=== PATIENT | female | born 1950 | race Caucasian/White ===

== ENCOUNTER 2016-05-12 11:11 | Inpatient (IN) | payer MEDICARE ==
[~2016-05-12] VITALS: Ht 165.1 cm; Wt 68.0 kg
[2016-05-12] MEDS ORDERED: IV NS 0.9% 500 ML BAG IV ONE (11:30)
[2016-05-12 11:53] LABS: BASOPHILS # (AUTO) 0.1 /CMM (0.0-0.2); BASOPHILS % (AUTO) 0.5 % (0.0-2.0); EOSINOPHILS # (AUTO) 0.1 /CMM (0.0-0.7); EOSINOPHILS % (AUTO) 0.6 % (0.0-6.0); HEMATOCRIT 36 % (33-45); HEMOGLOBIN 12.2 g/dL (11.5-14.8); LYMPHOCYTES # (AUTO) 1.1 /CMM (0.8-4.8); LYMPHOCYTES % (AUTO) 5.5 % (20.0-44.0); MEAN CORPUSCULAR HEMOGLOBIN 32 PG (26.0-33.0); MEAN CORPUSCULAR HGB CONC 34 g/dl (31.0-36.0); MEAN CORPUSCULAR VOLUME 94 fL (82-100); MONOCYTES % (AUTO) 5.1 % (2.0-12.0); NEUTROPHILS # (AUTO) 16.9 /CMM (1.8-8.9); NEUTROPHILS % (AUTO) 88.3 % (43.0-81.0); PLATELET COUNT (AUTO) 309 /CMM (150-450); RED BLOOD CELL COUNT(AUTO) 3.86 MIL/uL (4.0-5.2); WHITE BLOOD COUNT (AUTO) 19.2 K/uL (4.3-11.0)
[2016-05-12 12:03] LABS: CALCIUM, SERUM 8.2 mg/dL (8.5-10.1); CARBON DIOXIDE 29 mmol/L (21-32); CHLORIDE 105 mmol/L (98-107); CREATININE 1.3 mg/dL (0.6-1.3); GFR 41 mL/min (>60); GLUCOSE 187 mg/dL (74-106); POTASSIUM 3.3 mmol/L (3.5-5.1); SODIUM SERUM 142 mmol/L (136-145); UREA NITROGEN, BLOOD 13 mg/dL (7-18)
[2016-05-12 12:08] LABS: ALANINE AMINOTRANSFERASE 31 U/L (12-78); ALBUMIN 3.1 g/dL (3.4-5.0); ALKALINE PHOSPHATASE 60 U/L (46-116); ASPARTATE AMINOTRANSFERASE 21 U/L (15-37); BILIRUBIN,DIRECT 0.2 mg/dL (0.0-0.2); BILIRUBIN,TOTAL 0.7 mg/dL (0.2-1.0)
[2016-05-12 12:10] LABS: INR 1.06 (0.87-1.13)
[2016-05-12 12:11] LABS: TROPONIN I < 0.017 ng/mL (0.00-0.056)
[2016-05-12] MEDS ORDERED: IV NS 0.9% 1,000 ML ONE (12:54)
[2016-05-12] MEDS ORDERED: IV NS 0.9% 1,000 ML BAG IV ONE (13:00)
[2016-05-12 13:13] LABS: APPEARANCE,URINE Turbid (CLEAR); BILIRUBIN,URINE Negative (NEGATIVE); BLOOD, URINE Negative Ery/uL (NEGATIVE); COLOR,URINE Yellow (YELLOW); KETONES,URINE Trace (NEGATIVE); LEUKOCYTE ESTERASE ,URINE Trace (NEGATIVE); NITRITE, URINE Positive (NEGATIVE); PH,URINE 5.5 (5.0-8.0); PROTEIN,URINE 100 mg/dl (NEGATIVE); UGLUCOSE Negative (NEGATIVE); UROBILINOGEN,URINE 0.2 EU/dL (0.2)
[2016-05-12] MEDS ORDERED: ARIP20TA10 PO (13:13)
[2016-05-12] MEDS ORDERED: CALC0.5C2 PO (13:13)
[2016-05-12] MEDS ORDERED: OMEP20CA10 PO (13:13)
[2016-05-12] MEDS ORDERED: SIMV40TA5 PO (13:13)
[2016-05-12] MEDS ORDERED: LEVO112T2 PO (13:13)
[2016-05-12] MEDS ORDERED: POTA-10 PO (13:13)
[2016-05-12] MEDS ORDERED: PRED5TAB48 PO (13:13)
[2016-05-12] MEDS ORDERED: [UNRECOGNIZED DRUG - CODE] PO (13:13)
[2016-05-12] MEDS ORDERED: OLAN10TA3 PO (13:13)
[2016-05-12] MEDS ORDERED: DICL100G34 TP (13:13)
[2016-05-12] MEDS ORDERED: BUPR-51 PO (13:13)
[2016-05-12] MEDS ORDERED: APIX2.5T PO (13:13)
[2016-05-12] MEDS ORDERED: HYDR200T4 PO (13:13)
[2016-05-12] MEDS ORDERED: FERR-58 PO (13:13)
[2016-05-12] MEDS ORDERED: CALC500T3 PO (13:13)
[2016-05-12] MEDS ORDERED: SENN8.6T6 PO (13:13)
[2016-05-12] MEDS ORDERED: LACT10SO68 PO (13:15)
[2016-05-12] MEDS ORDERED: IV SET PRIMARY PUMP SET 1 EA INFUS.SET MC ONE ×3 (13:19→16:30)
[2016-05-12] MEDS ORDERED: IV NS 0.9% 500 ML IV ONE (13:19)
[2016-05-12] MEDS ORDERED: CEFTRIAXONE 1GM BAG (ER ONLY) 50 ML IV ONE (13:20)
[2016-05-12] MEDS ORDERED: RISP1TAB27 PO (13:20)
[2016-05-12 13:23] LABS: ADD URINE CULTURE YES; BACTERIA,URINE Many /HPF (None Seen); MUCUS,URINE Few /LPF (None Seen); RBC,URINE 0-2 /HPF (0-2); SQUAMOUS EPITHELIAL CELL,UR Few /HPF (None Seen)
[2016-05-12] MEDS ORDERED: CEFTRIAXONE 1GM BAG (ER ONLY) 1 GM/50 ML PIGGYBACK IV ONE (13:30)
[2016-05-12 13:34] LABS: LACTIC ACID 2.2 mmol/L (0.4-2.0)
[2016-05-12] MEDS ORDERED: ZOLPIDEM TARTRATE 5 MG TABLET PO PRN (15:00)
[2016-05-12] MEDS ORDERED: ONDANSETRON HCL/PF 4 MG/2 ML VIAL IVP PRN (15:00)
[2016-05-12] MEDS ORDERED: MAG HYDROX/AL HYDROX/SIMETH 30 ML UDC PO PRN (15:00)
[2016-05-12] MEDS ORDERED: MAGNESIUM HYDROXIDE 30 ML UDC PO PRN (15:00)
[2016-05-12] MEDS ORDERED: Z GUARD REMEDY 2 OZ OINT TP PRN (15:00)
[2016-05-12] MEDS ORDERED: risperiDONE 1 MG TABLET PO PRN (15:00)
[2016-05-12 16:00] VITALS: BP_SYST 133; BP_DIAS 73; BP_DIAS 76
[2016-05-12] MEDS ORDERED: BUPROPION XL 150 MG TAB.ER.24 PO SCH (16:30)
[2016-05-12] MEDS: ACETAMINOPHEN 325 MG TABLET PO PRN (16:39)
[2016-05-12] MEDS: IV NS 0.9% 1,000 ML IV PRN (16:40)
[2016-05-12] MEDS: APIXABAN 2.5 MG TABLET PO SCH (17:24)
[2016-05-12] MEDS ORDERED: DEXTROSE 50%-WATER 50 ML DISP.SYRIN IV PRN (18:30)
[2016-05-12] MEDS ORDERED: INSULIN REGULAR, HUMAN 100 UNIT/ML 3 ML VIAL SQ PRN (18:30)
[2016-05-12 20:00] VITALS: BP 118/84
[2016-05-12] MEDS: HYDROCODONE/APAP 5/325MG 1 EACH TABLET PO PRN (20:11)
[2016-05-12] MEDS: SIMVASTATIN 40 MG TABLET PO SCH (21:52)
[2016-05-12] MEDS: BLOOD SUGAR DIAGNOSTIC 1 EACH STRIP IN SCH (21:52)
[2016-05-12] MEDS: SENNOSIDES 8.6 MG TABLET PO SCH (21:52)
[2016-05-12] MEDS: OLANZAPINE 10 MG TABLET PO SCH (21:52)
[2016-05-12] MEDS ORDERED: ARIPIPRAZOLE 5 MG TABLET PO SCH (22:00)
[2016-05-13] VITALS (10 sets, daily range): BP systolic 121–169; BP diastolic 70–119
[2016-05-13 07:23] LABS: BASOPHILS % (AUTO) 0.5 % (0.0-2.0); EOSINOPHILS # (AUTO) 0.1 /CMM (0.0-0.7); EOSINOPHILS % (AUTO) 1.4 % (0.0-6.0); HEMATOCRIT 33 % (33-45); HEMOGLOBIN 11.1 g/dL (11.5-14.8); LYMPHOCYTES # (AUTO) 1.6 /CMM (0.8-4.8); LYMPHOCYTES % (AUTO) 20.6 % (20.0-44.0); MEAN CORPUSCULAR HEMOGLOBIN 32 PG (26.0-33.0); MEAN CORPUSCULAR HGB CONC 33 g/dl (31.0-36.0); MEAN CORPUSCULAR VOLUME 95 fL (82-100); MONOCYTES # (AUTO) 0.9 /CMM (0.1-1.30); MONOCYTES % (AUTO) 11.4 % (2.0-12.0); NEUTROPHILS # (AUTO) 5.2 /CMM (1.8-8.9); NEUTROPHILS % (AUTO) 66.1 % (43.0-81.0); PLATELET COUNT (AUTO) 272 /CMM (150-450); RDW COEFFICIENT OF VARIATION 14.5 (11.5-15.0); RED BLOOD CELL COUNT(AUTO) 3.51 MIL/uL (4.0-5.2); WHITE BLOOD COUNT (AUTO) 7.9 K/uL (4.3-11.0)
[2016-05-13] MEDS: BLOOD SUGAR DIAGNOSTIC 1 EACH STRIP IN SCH ×4 (07:26→21:07)
[2016-05-13] MEDS: IV NS 0.9% 1,000 ML IV PRN (07:26)
[2016-05-13] MEDS ORDERED: IV NS 0.9% 1,000 ML IV PRN (07:39)
[2016-05-13 07:59] LABS: IRON, SERUM 52 ug/dl (50-175); TOTAL IRON BINDING CAPACITY 222 ug/dl (250-450)
[2016-05-13] MEDS: predniSONE 10 MG TABLET PO SCH (08:22)
[2016-05-13] MEDS: LEVOTHYROXINE SODIUM 112 MCG TABLET PO SCH (08:22)
[2016-05-13] MEDS: FERROUS SULFATE (325 MG) 325 MG/TAB TABLET PO SCH (08:22)
[2016-05-13] MEDS: HYDROXYCHLOROQUINE 200 MG TABLET PO SCH (08:22)
[2016-05-13] MEDS: PANTOPRAZOLE 40 MG TABLET.DR PO SCH (08:22)
[2016-05-13] MEDS: APIXABAN 2.5 MG TABLET PO SCH ×2 (08:26→17:55)
[2016-05-13 08:37] LABS: TROPONIN I < 0.017 ng/mL (0.00-0.056)
[2016-05-13 08:48] LABS: FERRITIN 114 ng/mL (8-388)
[2016-05-13 09:10] LABS: CALCIUM, SERUM 8.6 mg/dL (8.5-10.1); MAGNESIUM 1.8 mg/dL (1.8-2.4); PHOSPHORUS 3.8 mg/dL (2.5-4.9); POTASSIUM 3.6 mmol/L (3.5-5.1)
[2016-05-13] MEDS ORDERED: SECONDARY IV SET 1 EA INFUS.SET MC ONE (13:20)
[2016-05-13] MEDS: HYDROCODONE/APAP 5/325MG 1 EACH TABLET PO PRN (14:06)
[2016-05-13] MEDS: CEFTRIAXONE 1 G in IV D5W 50 ML IV SCH (14:07)
[2016-05-13] MEDS ORDERED: IV SET PRIMARY PUMP SET 1 EA INFUS.SET MC ONE (16:41)
[2016-05-13] MEDS: ACETAMINOPHEN 325 MG TABLET PO PRN (18:30)
[2016-05-13] MEDS: SIMVASTATIN 40 MG TABLET PO SCH (21:06)
[2016-05-13] MEDS: OLANZAPINE 10 MG TABLET PO SCH (21:06)
[2016-05-13] MEDS: CLONIDINE HCL 0.1 MG TABLET PO PRN (21:06)
[2016-05-13] MEDS: SENNOSIDES 8.6 MG TABLET PO SCH (21:07)
[2016-05-14] VITALS: BP_SYST 161; BP_SYST 166; BP_DIAS 101; BP_DIAS 81
[2016-05-14] MEDS ORDERED: CLONIDINE HCL 0.1 MG TABLET PO ONE (01:00)
[2016-05-14 03:00] VITALS: BP 118/70
[2016-05-14] MEDS: CLONIDINE HCL 0.1 MG TABLET PO PRN (06:10)
[2016-05-14] MEDS: BLOOD SUGAR DIAGNOSTIC 1 EACH STRIP IN SCH ×2 (06:13→12:00)
[2016-05-14 07:07] VITALS: BP 132/67
[2016-05-14 07:19] LABS: BASOPHILS % (AUTO) 0.5 % (0.0-2.0); EOSINOPHILS # (AUTO) 0.2 /CMM (0.0-0.7); EOSINOPHILS % (AUTO) 2.5 % (0.0-6.0); HEMATOCRIT 33 % (33-45); HEMOGLOBIN 11.1 g/dL (11.5-14.8); LYMPHOCYTES # (AUTO) 1.9 /CMM (0.8-4.8); LYMPHOCYTES % (AUTO) 24.7 % (20.0-44.0); MEAN CORPUSCULAR HEMOGLOBIN 32 PG (26.0-33.0); MEAN CORPUSCULAR HGB CONC 34 g/dl (31.0-36.0); MEAN CORPUSCULAR VOLUME 94 fL (82-100); MONOCYTES # (AUTO) 0.9 /CMM (0.1-1.30); MONOCYTES % (AUTO) 10.8 % (2.0-12.0); NEUTROPHILS # (AUTO) 4.9 /CMM (1.8-8.9); NEUTROPHILS % (AUTO) 61.5 % (43.0-81.0); PLATELET COUNT (AUTO) 282 /CMM (150-450); RDW COEFFICIENT OF VARIATION 15.4 (11.5-15.0); RED BLOOD CELL COUNT(AUTO) 3.51 MIL/uL (4.0-5.2); WHITE BLOOD COUNT (AUTO) 7.9 K/uL (4.3-11.0)
[2016-05-14 07:32] LABS: TROPONIN I < 0.017 ng/mL (0.00-0.056)
[2016-05-14 07:57] LABS: ALANINE AMINOTRANSFERASE 23 U/L (12-78); ALBUMIN 2.8 g/dL (3.4-5.0); ALKALINE PHOSPHATASE 51 U/L (46-116); ASPARTATE AMINOTRANSFERASE 13 U/L (15-37); BILIRUBIN,TOTAL 0.5 mg/dL (0.2-1.0); CALCIUM, SERUM 8.8 mg/dL (8.5-10.1); CARBON DIOXIDE 31 mmol/L (21-32); CHLORIDE 112 mmol/L (98-107); GFR 56 mL/min (>60); GLUCOSE 82 mg/dL (74-106); PHOSPHORUS 4.1 mg/dL (2.5-4.9); POTASSIUM 3.4 mmol/L (3.5-5.1); SODIUM SERUM 148 mmol/L (136-145); TOTAL PROTEIN, SERUM 5.7 g/dL (6.4-8.2); UREA NITROGEN, BLOOD 10 mg/dL (7-18)
[2016-05-14] MEDS: HYDROXYCHLOROQUINE 200 MG TABLET PO SCH (09:55)
[2016-05-14] MEDS: LEVOTHYROXINE SODIUM 112 MCG TABLET PO SCH (09:55)
[2016-05-14] MEDS: FERROUS SULFATE (325 MG) 325 MG/TAB TABLET PO SCH (09:55)
[2016-05-14] MEDS: predniSONE 10 MG TABLET PO SCH (09:55)
[2016-05-14] MEDS: PANTOPRAZOLE 40 MG TABLET.DR PO SCH (09:55)
[2016-05-14] MEDS: APIXABAN 2.5 MG TABLET PO SCH ×2 (09:56→16:35)
[2016-05-14] MEDS ORDERED: POTASSIUM CHLORIDE 20 MEQ TAB.PRT.SR PO ONE (11:00)
[2016-05-14] MEDS: CEFTRIAXONE 1 G in IV D5W 50 ML IV SCH (14:40)
[2016-05-14 16:08] VITALS: BP 108/69
== END 2016-05-14 16:45 | disposition home or self-care (01) | DRG 872 ==
LOC: ER 11:14 → TELE 12:35 → MED 05-14 08:38
PROVIDERS: ADMIT Legal Medicine; ATTEND Legal Medicine
DX: A41.9 Sepsis, unspecified organism (principal); N10 Acute pyelonephritis; E44.1 Mild protein-calorie malnutrition; N39.0 Urinary tract infection, site not specified; E87.2 Acidosis; E87.6 Hypokalemia; I95.1 Orthostatic hypotension; M32.9 Systemic lupus erythematosus, unspecified; Z86.73 Personal history of transient ischemic attack (TIA), and cerebral infarction without residual deficits; I11.9 Hypertensive heart disease without heart failure; E78.5 Hyperlipidemia, unspecified; M19.90 Unspecified osteoarthritis, unspecified site; E03.9 Hypothyroidism, unspecified; Z79.52 Long term (current) use of systemic steroids; Z79.01 Long term (current) use of anticoagulants; G35 Multiple sclerosis; G89.4 Chronic pain syndrome; E11.9 Type 2 diabetes mellitus without complications; Z87.891 Personal history of nicotine dependence
CPT/HCPCS: 36415; 70450-TC; 71010-TC; 80048-TC; 80053-TC; 80061-TC; 80076-TC; 81000-TC; 82306; 82728-TC; 82962-TC; 83540-TC; 83605-TC; 83735-TC; 84100-TC; 84439-TC; 84443-TC; 84484-TC; 85025-TC; 85730-TC; 86850-TC; 87040-TC; 87086-TC; 87186-TC; 93307-TC; 93925-TC; 97001-TC; 97110-TC; 97530-TC; A4606; J0696; J1815; J7030; J7040; J7060; Z7610

== ENCOUNTER 2016-08-19 09:48 | Inpatient (IN) | payer MEDICARE, BC ==
[~2016-08-19] VITALS: Ht 167.6 cm; Wt 72.6 kg
[~2016-08-19 09:48] MED LIST: APIX2.5T PO; HYDR200T4 PO; LEVO112T2 PO; PRED5TAB48 PO; RISP1TAB27 PO; SIMV40TA5 PO
--- NOTE | 2016-08-19 09:48 | NUR ---
MALIKA FLETCHER FROM BOARD AND CARE CC: DIZZINESS UPON STANDING THIS AM, DENIES LOC. NAD NOTED. PT AAO X3, VSS. DR STERLING AT BEDSIDE FOR EVAL. PT PLACED IN GOWN AND MONITOR. EKG AT BEDSIDE.
[2016-08-19] MEDS ORDERED: IV NS 0.9% 1,000 ML BAG IV ONE ×2 (10:00→11:30)
[2016-08-19] MEDS ORDERED: IV SET PRIMARY 1 EA INFUS.SET MC ONE ×2 (10:03→11:32)
[2016-08-19] MEDS ORDERED: IV NS 0.9% 1,000 ML ONE ×2 (10:03→11:32)
[2016-08-19 10:10] LABS: BASOPHILS # (AUTO) 0.2 /CMM (0.0-0.2); BASOPHILS % (AUTO) 1.2 % (0.0-2.0); EOSINOPHILS # (AUTO) 0.2 /CMM (0.0-0.7); EOSINOPHILS % (AUTO) 1.4 % (0.0-6.0); HEMATOCRIT 43 % (33-45); HEMOGLOBIN 13.9 g/dL (11.5-14.8); LYMPHOCYTES # (AUTO) 1.8 /CMM (0.8-4.8); LYMPHOCYTES % (AUTO) 13.5 % (20.0-44.0); MEAN CORPUSCULAR HEMOGLOBIN 30 PG (26.0-33.0); MEAN CORPUSCULAR HGB CONC 32 g/dl (31.0-36.0); MEAN CORPUSCULAR VOLUME 93 fL (82-100); MONOCYTES # (AUTO) 0.7 /CMM (0.1-1.30); MONOCYTES % (AUTO) 5.5 % (2.0-12.0); NEUTROPHILS # (AUTO) 10.3 /CMM (1.8-8.9); NEUTROPHILS % (AUTO) 78.4 % (43.0-81.0); PLATELET COUNT (AUTO) 340 /CMM (150-450); RED BLOOD CELL COUNT(AUTO) 4.63 MIL/uL (4.0-5.2); WHITE BLOOD COUNT (AUTO) 13.2 K/uL (4.3-11.0)
[2016-08-19 10:20] LABS: CALCIUM, SERUM 9.3 mg/dL (8.5-10.1); CARBON DIOXIDE 29 mmol/L (21-32); CHLORIDE 101 mmol/L (98-107); CREATININE 1.4 mg/dL (0.6-1.3); GLUCOSE 167 mg/dL (74-106); POTASSIUM 3.1 mmol/L (3.5-5.1); SODIUM SERUM 139 mmol/L (136-145); UREA NITROGEN, BLOOD 11 mg/dL (7-18)
[2016-08-19 10:24] LABS: INR 0.99 (0.87-1.13); PROTHROMBIN TIME 10.3 SECS (9.5-12.7)
[2016-08-19] MEDS ORDERED: FURO-145 PO (10:25)
[2016-08-19] MEDS ORDERED: BISA10SU8 RC (10:25)
[2016-08-19] MEDS ORDERED: TRAM50TA2 PO (10:25)
[2016-08-19] MEDS ORDERED: FLUD0.1T PO (10:25)
[2016-08-19] MEDS ORDERED: AMLO5TAB2 PO (10:25)
[2016-08-19] MEDS ORDERED: CARV3.122 PO (10:25)
[2016-08-19] MEDS ORDERED: OMEP40CA37 PO (10:25)
[2016-08-19] MEDS ORDERED: ASPI81TA2 PO (10:25)
[2016-08-19] MEDS ORDERED: ALEN70TA45 PO (10:25)
[2016-08-19 10:26] LABS: ALANINE AMINOTRANSFERASE 19 U/L (12-78); ALBUMIN 3.3 g/dL (3.4-5.0); ALKALINE PHOSPHATASE 58 U/L (46-116); ASPARTATE AMINOTRANSFERASE 16 U/L (15-37); BILIRUBIN,DIRECT 0.2 mg/dL (0.0-0.2); BILIRUBIN,TOTAL 0.8 mg/dL (0.2-1.0); TOTAL PROTEIN, SERUM 6.6 g/dL (6.4-8.2)
[2016-08-19 10:28] LABS: TROPONIN I < 0.017 ng/mL (0.00-0.056)
[2016-08-19] MEDS ORDERED: POTASSIUM CHLORIDE 20 MEQ TAB.PRT.SR PO ONE ×2 (10:30→10:44)
--- NOTE | 2016-08-19 10:48 | NUR ---
PREVIOUSLY PT WAS ADMITTED AND DISCHARGED BY DR HASTINGS, NEED TO VERIFY. PAGED DR HASTINGS'S OFFICE AT FOR VERIFICATION. AWAITING FOR CALL BACK.
[2016-08-19 11:13] LABS: APPEARANCE,URINE Slightly Cloudy (CLEAR); BILIRUBIN,URINE Negative (NEGATIVE); BLOOD, URINE Negative Ery/uL (NEGATIVE); COLOR,URINE Yellow (YELLOW); KETONES,URINE Negative (NEGATIVE); LEUKOCYTE ESTERASE ,URINE Trace (NEGATIVE); NITRITE, URINE Negative (NEGATIVE); PH,URINE 7.5 (5.0-8.0); PROTEIN,URINE Negative (NEGATIVE); UGLUCOSE Negative (NEGATIVE); UROBILINOGEN,URINE 0.2 EU/dL (0.2)
[2016-08-19 11:25] LABS: BACTERIA,URINE Many /HPF (None Seen); RBC,URINE 0-2 /HPF (0-2); SQUAMOUS EPITHELIAL CELL,UR Many /HPF (None Seen)
[2016-08-19] MEDS ORDERED: CEFTRIAXONE 1GM BAG (ER ONLY) 50 ML IV ONE ×2 (11:30→11:32)
[2016-08-19] MEDS ORDERED: IV NS 0.9% 500 ML IV ONE (11:32)
[2016-08-19 12:00] VITALS: BP 144/93
--- NOTE | 2016-08-19 12:11 | NUR ---
REPORT GIVEN TO GISELLE NEIL FOR SARITHA
[2016-08-19 13:30] VITALS: BP 144/93
[2016-08-19] MEDS ORDERED: risperiDONE 1 MG TABLET PO PRN (13:30)
[2016-08-19] MEDS ORDERED: BISACODYL SUPP (10 MG) 10 MG/SUPP.RECT SUPP.RECT RC PRN (13:30)
[2016-08-19] MEDS ORDERED: DEXTROSE 50%-WATER 50 ML DISP.SYRIN IV PRN (13:30)
[2016-08-19] MEDS ORDERED: ONDANSETRON HCL/PF 4 MG/2 ML VIAL IVP PRN (13:30)
--- NOTE | 2016-08-19 13:30 | NUR ---
MS LOGISTICS ENGINEERING MANAGER 66 YEARS OLD FEMALE ADMITTED TO MED SURG UNIT. PATIENT IS A/O X3, ON ROOM AIR TOLERATING WELL. V/S TAKEN AND RECORDED. SKIN INTACT. MADE COMFORTABLE IN BED, PLACE CALL LIGHT WITHIN REACH. WILL CONT TO MONITOR.
[2016-08-19] MEDS ORDERED: IV SET PRIMARY PUMP SET 1 EA INFUS.SET MC ONE (15:07)
[2016-08-19] MEDS: IV NS 0.9% 1,000 ML IV PRN (15:11)
[2016-08-19 16:00] VITALS: BP 152/92
[2016-08-19] MEDS: AMLODIPINE BESYLATE 5 MG TABLET PO SCH (16:57)
[2016-08-19] MEDS: CARVEDILOL 3.125 MG TABLET PO SCH (16:57)
[2016-08-19] MEDS: INSULIN REGULAR, HUMAN 100 UNIT/ML 3 ML VIAL SQ PRN (17:04)
[2016-08-19] MEDS: BLOOD SUGAR DIAGNOSTIC 1 EACH STRIP IN SCH ×2 (17:04→21:18)
--- NOTE | 2016-08-19 17:46 | NUR ---
PATIENT C/O UPSET STOMACH. NO C/O NAUSEA, NO VOMITING NOTED. CALLED SPOKE TO DR. HASTINGS WITH NEW ORDERS NOTED AND ACKNOWLEDGED.
[2016-08-19] MEDS: CALCIUM CARBONATE 500 MG TAB.CHEW PO PRN (17:59)
[2016-08-19] MEDS: APIXABAN 2.5 MG PO SCH (17:59)
--- NOTE | 2016-08-19 18:15 | NUR ---
MS RN CLOSING NOTES PATIENT IN BED, NOT IN DISTRESS. BLOOD SUGAR MONITORED, NO S/S OF HYPO/HYPERGLYCEMIA NOTED. IV IN LEFT AC PATENT AND INTACT, IVF NS INFUSING AT 75ML/HR. NO C/O PAIN AT THIS TIME. SCD IN PLACE. WILL ENDORSE TO BAND CUTTER RN FOR CONT. OF CARE.
--- NOTE | 2016-08-19 19:30 | NUR ---
RN NOTES RECEIVED PATIENT IN BED AWAKE, AO X 3, ABLE TO MAKE NEEDS KNOWN. NO ACUTE DISTRESS NOTED. DENIES ANY PAIN AT THIS TIME. IV SITE PATENT, INTACT; IVF INFUSING ORDERED. NO SYMPTOMS OF HYPER/HYPOGLYCEMIA. ON LOW BED WITH BILATERAL UPPER SIDE RAILS UP. CALL LIGHT WITHIN EASY REACH, WILL CONTINUE TO MONITOR.
[2016-08-19 20:00] VITALS: BP 158/98
[2016-08-19] MEDS: ACETAMINOPHEN 325 MG TABLET PO PRN (22:50)
[2016-08-20] VITALS (7 sets, daily range): BP systolic 91–159; BP diastolic 58–105
[2016-08-20] MEDS: IV NS 0.9% 1,000 ML IV PRN (05:18)
[2016-08-20] MEDS: CALCIUM CARBONATE 500 MG TAB.CHEW PO PRN ×5 (05:18→17:25)
[2016-08-20 06:33] LABS: BASOPHILS % (AUTO) 0.2 % (0.0-2.0); EOSINOPHILS # (AUTO) 0.1 /CMM (0.0-0.7); EOSINOPHILS % (AUTO) 1.4 % (0.0-6.0); HEMATOCRIT 41 % (33-45); HEMOGLOBIN 13.9 g/dL (11.5-14.8); LYMPHOCYTES # (AUTO) 1.5 /CMM (0.8-4.8); LYMPHOCYTES % (AUTO) 15.7 % (20.0-44.0); MEAN CORPUSCULAR HEMOGLOBIN 31 PG (26.0-33.0); MEAN CORPUSCULAR HGB CONC 34 g/dl (31.0-36.0); MEAN CORPUSCULAR VOLUME 93 fL (82-100); MONOCYTES # (AUTO) 0.8 /CMM (0.1-1.30); MONOCYTES % (AUTO) 7.7 % (2.0-12.0); NEUTROPHILS # (AUTO) 7.4 /CMM (1.8-8.9); PLATELET COUNT (AUTO) 260 /CMM (150-450); RED BLOOD CELL COUNT(AUTO) 4.45 MIL/uL (4.0-5.2); WHITE BLOOD COUNT (AUTO) 9.8 K/uL (4.3-11.0)
[2016-08-20] MEDS: BLOOD SUGAR DIAGNOSTIC 1 EACH STRIP IN SCH ×4 (06:37→21:24)
[2016-08-20 06:39] LABS: CALCIUM, SERUM 8.4 mg/dL (8.5-10.1); CREATININE 0.8 mg/dL (0.6-1.3); MAGNESIUM 1.8 mg/dL (1.8-2.4)
[2016-08-20] MEDS: PANTOPRAZOLE 40 MG TABLET.DR PO SCH (06:39)
--- NOTE | 2016-08-20 06:59 | NUR ---
RN NOTES PATIENT ASLEEP, EASILY AROUSABLE. RESPIRATIONS EVEN. NO SIGNS OF PAIN NOTED. SAFETY PRECAUTIONS AND COMFORT MEASURES IN PLACE. WILL GIVE REPORT TO DAY SHIFT FOR CONTINUITY OF CARE.
--- NOTE | 2016-08-20 07:40 | NUR ---
RN OPENING NOTES RECEIVED PATIENT IN BED AWAKE, ALERT AND ORIENTED X 3, ABLE TO MAKE NEEDS KNOWN. NO ACUTE DISTRESS NOTED. DENIES ANY PAIN AT THIS TIME. IV SITE INTACT AND PATENT. BED IN LOWEST POSITION, SIDERAILS UP X2. CALL LIGHT WITHIN EASY REACH, WILL CONTINUE TO MONITOR.
[2016-08-20 07:48] LABS: POTASSIUM 2.8 mmol/L (3.5-5.1)
--- NOTE | 2016-08-20 08:06 | NUR ---
RECEIVED REPORT BY LAB, POTASSIUM LEVEL 2.8, DR HASTINGS AWARE.
--- NOTE | 2016-08-20 08:10 | NUR ---
PATIENT ASKED FOR TUMS. VERIFIED WITH DR HASTINGS ABOUT THE BID FREQUENCY. PER DR HASTINGS, PATIENT CAN HAVE TUMS NEEDED.
[2016-08-20] MEDS: LEVOTHYROXINE SODIUM 112 MCG TABLET PO SCH (08:11)
[2016-08-20] MEDS: ASPIRIN 81 MG TAB.CHEW PO SCH (08:15)
[2016-08-20] MEDS: predniSONE 10 MG TABLET PO SCH (08:15)
[2016-08-20] MEDS: HYDROXYCHLOROQUINE 200 MG TABLET PO SCH (08:16)
[2016-08-20] MEDS: CARVEDILOL 3.125 MG TABLET PO SCH ×2 (08:18→16:35)
[2016-08-20] MEDS: AMLODIPINE BESYLATE 5 MG TABLET PO SCH ×2 (08:19→16:35)
[2016-08-20] MEDS: APIXABAN 2.5 MG PO SCH ×2 (08:20→17:20)
[2016-08-20] MEDS: Z GUARD REMEDY 2 OZ OINT TP SCH (08:57)
[2016-08-20] MEDS: FLUDROCORTISONE 0.1 MG TABLET PO SCH (08:57)
[2016-08-20] MEDS ORDERED: POTASSIUM CHLORIDE 20 MEQ TAB.PRT.SR PO ONE (09:00)
[2016-08-20] MEDS ORDERED: FUROSEMIDE 20 MG TABLET PO SCH (09:00)
[2016-08-20 10:07] LABS: THYROID STIMULATING HORMONE 2.252 uIU/mL (0.358-3.74)
[2016-08-20] MEDS: POTASSIUM CHLORIDE 20 MEQ TAB.PRT.SR PO SCH ×3 (10:45→14:01)
--- NOTE | 2016-08-20 11:02 | NUR ---
WOUND CARE CONSULT: PT NOT SEEN YET FOR SKIN ASSESSMENT DUE TO PT UP WITH P.T. AT THIS TIME. BETTY SCORE CURRENTLY 18. RECOMMEND Z GUARD FOR BREAST FOLD REDNESS. CONTINUE ALL SKIN PROTECTION MEASURES. DISCUSSED WITH NURSING STAFF. MD IN AGREEMENT WITH PLAN OF CARE.
[2016-08-20] MEDS: CEFTRIAXONE 1 G in IV D5W 50 ML IV SCH (12:15)
[2016-08-20] MEDS: TRAMADOL HCL 50 MG TABLET PO PRN (16:31)
--- NOTE | 2016-08-20 19:00 | NUR ---
RN CLOSING NOTES PATIENT RESTING IN BED. NO ACUTE DISTRESS NOTED. ALL NEEDS ATTENDED AND PROVIDED. BED IN LOWEST POSITION, CALL LIGHT WITHIN REACH. ENDORSED TO HEALTH SPA MANAGER RN FOR CONTINUITY OF CARE.
--- NOTE | 2016-08-20 19:30 | NUR ---
MS RN INITIAL NOTE RECEIVED PT AWAKE AND ALERT, ORIENTED X3, ABLE TO VERBALIZE NEEDS EFFECTIVELY, NO PAIN OR RESPIRATORY DISTRESS REPORTED DURING PHYSICAL ASSESSMENT, PT IS CLEAN/DRY AND COMFORTABLE, SAFETY MEASURES WILL BE MAINTAINED AT ALL TIMES, NEEDS WILL BE ANTICIPATED AND ATTENDED TO PROMPTLY.
[2016-08-21] MEDS: BLOOD SUGAR DIAGNOSTIC 1 EACH STRIP IN SCH ×4 (06:20→21:31)
[2016-08-21] MEDS: TRAMADOL HCL 50 MG TABLET PO PRN ×3 (06:20→19:44)
[2016-08-21] MEDS: IV NS 0.9% 1,000 ML IV PRN ×2 (06:24→18:38)
--- NOTE | 2016-08-21 06:56 | NUR ---
MS RN CLOSING NOTE PT REMAINED STABLE DURING SENIOR APPLICATION SECURITY CONSULTANT, WILL ENDORSE TO AM NURSE FOR SARITHA.
--- NOTE | 2016-08-21 07:10 | NUR ---
RECEIVED PT IN SEMI-FOWLERS POSITION IN BED. PT A/O X3, PLEASANT AND COOPERATIVE IN STABLE CONDITION. PT STATES PAIN 8/10 IN NECK AND BACK. IV ON LEFT AC INTACT AND PATENT, RUNNING NS 75 ML/HR. BED IS IN LOCKED AND LOW POSITION, SIDE RAILS ARE UP X2, BED ALARM IS ON AND CALL LIGHT IS IN REACH.
[2016-08-21 07:12] VITALS: BP 143/83
[2016-08-21 07:15] LABS: BASOPHILS % (AUTO) 0.3 % (0.0-2.0); EOSINOPHILS # (AUTO) 0.2 /CMM (0.0-0.7); EOSINOPHILS % (AUTO) 1.5 % (0.0-6.0); HEMATOCRIT 39 % (33-45); HEMOGLOBIN 12.9 g/dL (11.5-14.8); LYMPHOCYTES # (AUTO) 1.2 /CMM (0.8-4.8); LYMPHOCYTES % (AUTO) 10.5 % (20.0-44.0); MEAN CORPUSCULAR HEMOGLOBIN 31 PG (26.0-33.0); MEAN CORPUSCULAR HGB CONC 33 g/dl (31.0-36.0); MEAN CORPUSCULAR VOLUME 93 fL (82-100); MONOCYTES # (AUTO) 0.9 /CMM (0.1-1.30); MONOCYTES % (AUTO) 7.6 % (2.0-12.0); NEUTROPHILS # (AUTO) 9.4 /CMM (1.8-8.9); NEUTROPHILS % (AUTO) 80.1 % (43.0-81.0); PLATELET COUNT (AUTO) 284 /CMM (150-450); RDW COEFFICIENT OF VARIATION 14.9 (11.5-15.0); RED BLOOD CELL COUNT(AUTO) 4.19 MIL/uL (4.0-5.2); WHITE BLOOD COUNT (AUTO) 11.7 K/uL (4.3-11.0)
[2016-08-21 07:30] LABS: CALCIUM, SERUM 8.4 mg/dL (8.5-10.1); CREATININE 0.7 mg/dL (0.6-1.3); POTASSIUM 3.4 mmol/L (3.5-5.1)
[2016-08-21 08:00] VITALS: BP 137/75
[2016-08-21] MEDS: PANTOPRAZOLE 40 MG TABLET.DR PO SCH (08:13)
[2016-08-21] MEDS: LEVOTHYROXINE SODIUM 112 MCG TABLET PO SCH (08:13)
[2016-08-21] MEDS: CARVEDILOL 3.125 MG TABLET PO SCH ×2 (08:14→16:51)
[2016-08-21] MEDS: ASPIRIN 81 MG TAB.CHEW PO SCH (08:14)
[2016-08-21] MEDS: APIXABAN 2.5 MG PO SCH ×2 (08:14→16:51)
[2016-08-21] MEDS: AMLODIPINE BESYLATE 5 MG TABLET PO SCH ×2 (08:15→16:51)
[2016-08-21] MEDS: HYDROXYCHLOROQUINE 200 MG TABLET PO SCH (08:15)
[2016-08-21] MEDS: predniSONE 10 MG TABLET PO SCH (08:15)
[2016-08-21] MEDS: FLUDROCORTISONE 0.1 MG TABLET PO SCH (08:23)
--- NOTE | 2016-08-21 08:24 | NUR ---
UNABLE TO SCAN FLUDROCORTISONE ACETATE BARCODE. MANUALLY ENTERED PRESCRIPTION BARCODE. WITNESSED BY ANOTHER RN.
[2016-08-21] MEDS: Z GUARD REMEDY 2 OZ OINT TP SCH (09:43)
[2016-08-21 10:00] VITALS: BP 137/75
[2016-08-21] MEDS ORDERED: POTASSIUM CHLORIDE 20 MEQ TAB.PRT.SR PO SCH (11:00)
[2016-08-21] MEDS ORDERED: SECONDARY IV SET 1 EA INFUS.SET MC ONE (11:41)
[2016-08-21] MEDS: ACETAMINOPHEN 325 MG TABLET PO PRN (11:46)
[2016-08-21] MEDS: CEFTRIAXONE 1 G in IV D5W 50 ML IV SCH (11:47)
[2016-08-21] MEDS: CALCIUM CARBONATE 500 MG TAB.CHEW PO PRN (13:00)
[2016-08-21] MEDS: INSULIN REGULAR, HUMAN 100 UNIT/ML 3 ML VIAL SQ PRN ×2 (13:39→17:04)
[2016-08-21 16:00] VITALS: BP 141/81
[2016-08-21] MEDS ORDERED: IV SET PRIMARY PUMP SET 1 EA INFUS.SET MC ONE (18:43)
--- NOTE | 2016-08-21 18:55 | NUR ---
PT IS IN SEMI-FOWLERS POSITION IN BED. PT IS ON ANTIBIOTICS, NO FEVER, WBC IS TRENDING DOWN. IV ON RIGHT FOREARM RUNNING NS AT 75 ML/HR. NO COMPLAINTS OF PAIN. DR. HOLDEN MENTIONED IN HIS NOTES TO CONTINUE WITH THE IV ANTIBIOTICS. BED IS LOCKED AND IN LOW POSITION, BED ALARM IS ON, SIDE RAILS UP X 2 AND CALL LIGHT IS IN REACH. WILL ENDORSE TO TACKER ELASTIC BAND RN FOR CONTINUITY OF CARE.
--- NOTE | 2016-08-21 19:30 | NUR ---
MS RN NOTE RECEIVED PATIENT FROM DAY SHIFT, PATIENT IS ALERT AND ORIENTEDX3, DENIES RESPIRATORY DISTRESS OR PAIN AT THIS TIME. IV ON RIGHT FA IS PATENT AND INTACT, NS IS RUNNING. SRX2, BED IN LOW POSITION, CALL LIGHT WITHIN REACH, WILL CONTINUE TO MONITOR PATIENT.
[2016-08-21 20:00] VITALS: BP 136/76
[2016-08-22] MEDS: IV NS 0.9% 1,000 ML IV PRN (05:59)
[2016-08-22] MEDS: BLOOD SUGAR DIAGNOSTIC 1 EACH STRIP IN SCH ×2 (06:00→11:56)
--- NOTE | 2016-08-22 06:40 | NUR ---
MS RN NOTE PATIENT IS RESTING IN BED COMFORTABLY, NO ACUTE EVENT PRESENT DURING THE FACS TEACHER. WILL ENDORSE TO DAY SHIFT NURSE FOR SARITHA.
[2016-08-22 07:13] LABS: CALCIUM, SERUM 8.3 mg/dL (8.5-10.1); CREATININE 0.7 mg/dL (0.6-1.3); POTASSIUM 3.3 mmol/L (3.5-5.1)
--- NOTE | 2016-08-22 07:53 | NUR ---
RN NOTES RECEIVED PATIENT ASLEEP EASILY AROUSABLE DURING CARE, VERBALLY RESPONSIVE, ABLE TO MAKE NEEDS KNOWN RESPIRATIONS EVEN AND UNLABORED, DENIES ANY PAIN OR DISCOMFORT, IV SITE PATENT AND INTACT NO REDNESS OR INFILTRATION NOTED. KEPT CLEAN DRY AND COMFORTABLE, CALL LIGHT WITHIN EASY REACH, WILL CONTINUE TO MONITOR
[2016-08-22 08:00] VITALS: BP 141/89
[2016-08-22] MEDS: ASPIRIN 81 MG TAB.CHEW PO SCH (08:07)
[2016-08-22] MEDS: AMLODIPINE BESYLATE 5 MG TABLET PO SCH (08:07)
[2016-08-22] MEDS: predniSONE 10 MG TABLET PO SCH (08:07)
[2016-08-22] MEDS: LEVOTHYROXINE SODIUM 112 MCG TABLET PO SCH (08:07)
[2016-08-22] MEDS: HYDROXYCHLOROQUINE 200 MG TABLET PO SCH (08:07)
[2016-08-22] MEDS: PANTOPRAZOLE 40 MG TABLET.DR PO SCH (08:07)
[2016-08-22] MEDS: TRAMADOL HCL 50 MG TABLET PO PRN (08:09)
[2016-08-22] MEDS: FLUDROCORTISONE 0.1 MG TABLET PO SCH (08:09)
[2016-08-22 08:10] VITALS: BP 141/89
[2016-08-22] MEDS: CARVEDILOL 3.125 MG TABLET PO SCH (08:10)
[2016-08-22] MEDS: APIXABAN 2.5 MG PO SCH (08:11)
[2016-08-22] MEDS: Z GUARD REMEDY 2 OZ OINT TP SCH (08:17)
[2016-08-22] MEDS ORDERED: POTASSIUM CHLORIDE 20 MEQ TAB.PRT.SR PO SCH (11:00)
[2016-08-22] MEDS: CEFTRIAXONE 1 G in IV D5W 50 ML IV SCH (11:56)
[2016-08-22] MEDS: INSULIN REGULAR, HUMAN 100 UNIT/ML 3 ML VIAL SQ PRN (11:58)
--- NOTE | 2016-08-22 13:21 | NUR ---
RN NOTES PATIENT WITH DISCHARGE ORDERS, ALL APPROPRIATE PAPERWORK COMPLETED AND SIGNED ALL DISCHARGE INSTRUCTIONS REVIEWED WITH PATIENT WITH VERBAL UNDERSTANDING NOTED. PRESCRIPTIONS PROVIDED TO PT, PICTURES OF SKIN TAKEN EXCEPT FOR LEFT HIP PATIENT REFUSED DID NOT WANT TO BE TAKEN NURSING EDUCATION REINFORCED. RESPIRATIONS EVEN AND UNLABORED, DENIES ANY PAIN OR DISCOMFORT AT THIS TIME. IV SITE REMOVED WITH NO ASE NOTED. BOARD AND CARE CURBING STONECUTTER TO BIOANALYST WILL CONTINUE TO MONITOR AND ASSIST WITH DISCHARGE PROCESS
--- NOTE | 2016-08-22 13:40 | NUR ---
RN NOTES PATIENT ASSISTED TO LOBBY BY ASSOCIATE PROFESSOR OF PHILOSOPHY DISCHARGED IN STABLE CONDITION
== END 2016-08-22 13:41 | disposition home or self-care (01) | DRG 872 ==
LOC: ER 09:50 → MED 12:24
PROVIDERS: ADMIT Legal Medicine; ATTEND Legal Medicine
DX: A41.9 Sepsis, unspecified organism (principal); N39.0 Urinary tract infection, site not specified; E11.9 Type 2 diabetes mellitus without complications; E78.5 Hyperlipidemia, unspecified; I10 Essential (primary) hypertension; I25.10 Atherosclerotic heart disease of native coronary artery without angina pectoris; E03.9 Hypothyroidism, unspecified; K21.9 Gastro-esophageal reflux disease without esophagitis; I48.91 Unspecified atrial fibrillation; Z86.73 Personal history of transient ischemic attack (TIA), and cerebral infarction without residual deficits; E87.6 Hypokalemia; M19.90 Unspecified osteoarthritis, unspecified site; R55 Syncope and collapse; B96.4 Proteus (mirabilis) (morganii) as the cause of diseases classified elsewhere; B95.2 Enterococcus as the cause of diseases classified elsewhere
CPT/HCPCS: 36415; 71010-TC; 80048-TC; 80076-TC; 81000-TC; 82962-TC; 83605-TC; 83690-TC; 83735-TC; 84439-TC; 84443-TC; 84484-TC; 85025-TC; 85730-TC; 87040-TC; 87081-TC; 87086-TC; 87186-TC; 97001-TC; A4606; J0696; J1815; J7030; J7040; J7060; Z7610

== ENCOUNTER 2017-01-25 13:12 | Inpatient (IN) | payer MEDICARE, BC ==
[~2017-01-25] VITALS: Ht 157.5 cm; Wt 72.6 kg
[~2017-01-25 13:12] MED LIST changes: +AMLO5TAB2 PO; +ASPI-1169 PO; +BISA10SU8 RC; +CARV3.122 PO; +FLUD0.1T PO; +FURO-145 PO; -SIMV40TA5 PO; +TRAM50TA2 PO
--- NOTE | 2017-01-25 13:12 | NUR ---
[id number] FROM [facility]ING FOR [place]NCOPE WHILE SITTING IN A CHAIR, NO TRAUMA. BS- 95. PT HAS NO COMPLAINTS. VSS NAD RR EVEN AND UNLABORED. KEPT WARM AND COMFORTABLE. PENDING ER MD EVALUATION
--- NOTE | 2017-01-25 13:46 | NUR ---
ANITA (CORRIDOR REDEVELOPMENT MANAGER) [phone] STS PATIENT HAD A CATARACT SURGERY ON TUESDAY, PT WAS NOTED PASSED OUT AND NON RESPONSVE TODAY AT 11:27 AM AND THEY CALLED 911 ER MD NOTIFIED
[2017-01-25 13:51] LABS: BASOPHILS # (AUTO) 0.1 /CMM (0.0-0.2); BASOPHILS % (AUTO) 2.3 % (0.0-2.0); EOSINOPHILS # (AUTO) 0.3 /CMM (0.0-0.7); EOSINOPHILS % (AUTO) 4.4 % (0.0-6.0); HEMATOCRIT 33 % (33-45); HEMOGLOBIN 11.2 g/dL (11.5-14.8); LYMPHOCYTES % (AUTO) 15.3 % (20.0-44.0); MEAN CORPUSCULAR HEMOGLOBIN 31 PG (26.0-33.0); MEAN CORPUSCULAR HGB CONC 34 g/dl (31.0-36.0); MEAN CORPUSCULAR VOLUME 91 fL (82-100); MONOCYTES # (AUTO) 0.6 /CMM (0.1-1.30); MONOCYTES % (AUTO) 9.8 % (2.0-12.0); NEUTROPHILS # (AUTO) 4.3 /CMM (1.8-8.9); NEUTROPHILS % (AUTO) 68.2 % (43.0-81.0); PLATELET COUNT (AUTO) 244 /CMM (150-450); RDW COEFFICIENT OF VARIATION 15.2 (11.5-15.0); RED BLOOD CELL COUNT(AUTO) 3.65 MIL/uL (4.0-5.2); WHITE BLOOD COUNT (AUTO) 6.3 K/uL (4.3-11.0)
[2017-01-25] MEDS ORDERED: IV NS 0.9% 1,000 ML BAG IV ONE (14:00)
[2017-01-25 14:04] LABS: CARBON DIOXIDE 30 mmol/L (21-32); CHLORIDE 104 mmol/L (98-107); POTASSIUM 3.3 mmol/L (3.5-5.1); SODIUM SERUM 141 mmol/L (136-145)
[2017-01-25 14:05] LABS: APPEARANCE,URINE Slightly Cloudy (CLEAR); BILIRUBIN,URINE SMALL (NEGATIVE); BLOOD, URINE Negative Ery/uL (NEGATIVE); COLOR,URINE Yellow (YELLOW); KETONES,URINE Negative (NEGATIVE); LEUKOCYTE ESTERASE ,URINE Negative (NEGATIVE); NITRITE, URINE Negative (NEGATIVE); PROTEIN,URINE 30 mg/dl (NEGATIVE); UGLUCOSE Negative (NEGATIVE)
[2017-01-25 14:05] LABS: INR 0.95 (0.87-1.13); PROTHROMBIN TIME 9.9 SECS (9.5-12.7)
[2017-01-25 14:06] LABS: CALCIUM, SERUM 8.3 mg/dL (8.5-10.1); GLUCOSE 115 mg/dL (74-106); UREA NITROGEN, BLOOD 16 mg/dL (7-18)
[2017-01-25 14:10] LABS: BACTERIA,URINE Few /HPF (None Seen); SQUAMOUS EPITHELIAL CELL,UR Moderate /HPF (None Seen); WBC,URINE 0-2 /HPF (0-3)
--- NOTE | 2017-01-25 14:10 | NUR ---
PT TAKEN TO CT SCAN
[2017-01-25 14:11] LABS: BILIRUBIN,DIRECT 0.3 mg/dL (0.0-0.2); BILIRUBIN,TOTAL 0.9 mg/dL (0.2-1.0); TROPONIN I < 0.017 ng/mL (0.00-0.056)
[2017-01-25 14:12] LABS: ALANINE AMINOTRANSFERASE 23 U/L (12-78); ALBUMIN 2.7 g/dL (3.4-5.0); ALKALINE PHOSPHATASE 46 U/L (46-116); ASPARTATE AMINOTRANSFERASE 26 U/L (15-37); TOTAL PROTEIN, SERUM 5.9 g/dL (6.4-8.2)
--- NOTE | 2017-01-25 15:45 | NUR ---
REPORT GIVEN TO CLARENCE NEIL FOR CONT OF CARE
[2017-01-25] MEDS ORDERED: ASPIRIN 81 MG TAB.CHEW PO SCH (16:00)
[2017-01-25] MEDS ORDERED: LEVOTHYROXINE SODIUM 112 MCG TABLET PO SCH (16:00)
[2017-01-25] MEDS ORDERED: TRAMADOL HCL 50 MG TABLET PO PRN ×2 (16:00→16:15)
[2017-01-25] MEDS ORDERED: FLUDROCORTISONE 0.1 MG TABLET PO SCH (16:00)
[2017-01-25] MEDS ORDERED: BISACODYL SUPP (10 MG) 10 MG/SUPP.RECT SUPP.RECT RC PRN ×2 (16:00→16:15)
[2017-01-25] MEDS ORDERED: HYDROXYCHLOROQUINE 200 MG TABLET PO SCH (16:00)
[2017-01-25] MEDS ORDERED: risperiDONE 1 MG TABLET PO PRN ×2 (16:00→16:15)
[2017-01-25 16:30] VITALS: BP 149/95
[2017-01-25] MEDS ORDERED: APIXABAN 2.5 MG TABLET PO SCH (17:00)
[2017-01-25] MEDS ORDERED: CARVEDILOL 3.125 MG TABLET PO SCH (17:00)
[2017-01-25] MEDS ORDERED: AMLODIPINE BESYLATE 5 MG TABLET PO SCH (17:00)
[2017-01-25] MEDS: FLUDROCORTISONE 0.1 MG TABLET PO SCH (17:30)
[2017-01-25] MEDS: AMLODIPINE BESYLATE 5 MG TABLET PO SCH (17:31)
[2017-01-25] MEDS: CARVEDILOL 3.125 MG TABLET PO SCH (17:31)
[2017-01-25] MEDS: ASPIRIN 81 MG TAB.CHEW PO SCH (17:32)
[2017-01-25] MEDS: HYDROXYCHLOROQUINE 200 MG TABLET PO SCH (17:33)
[2017-01-25] MEDS: IV NS 0.9% 1,000 ML IV PRN (17:45)
[2017-01-25] MEDS: APIXABAN 2.5 MG TABLET PO SCH (18:49)
--- NOTE | 2017-01-25 18:52 | NUR ---
RN CLOSING NOTES RECEIVED PT. PT IS STABLE AND RESTING IN BED. PT ADMITTED FOR WEAKNESS. A/OX3. IV ACCESS LOCATED ON RIGHT AC 20G RUNNING NS AT 75 ML/HR. SACRAL REDNESS AND BLE DISCOLORATION NOTED ON ADMISSION. SAFETY MEASURES IN PLACE, CALL LIGHT WITHIN REACH. WILL ENDORSE TO RELEASE ENGINEER FOR SARITHA.
--- NOTE | 2017-01-25 19:30 | NUR ---
RN NOTE; RECEIVED PT IN BED AWAKE AND ALERT. BREATHING EVENLY. NO SOB. NAD. SKIN WARM AND DRY. W/ C/O WEAKNESS HOWEVER DENIED ANY PAIN OR DISCOMFORT. PT WAS CONNECTED TO IVF HYDRATION. IV SITE INTACT. NEEDS ATTENDED. BED LOW LOCKED. CALL LIGHT WITHIN REACH. WILL CONT TO MONITOR.
[2017-01-25 20:00] VITALS: BP 146/88
[2017-01-26] MEDS ORDERED: ACETAMINOPHEN 325 MG TABLET ONE (04:05)
[2017-01-26] MEDS ORDERED: ONDANSETRON HCL/PF 4 MG/2 ML VIAL IV PRN (04:30)
--- NOTE | 2017-01-26 07:06 | NUR ---
RN NOTE; PT IN BED AWAKE AND ALERT. BREATHING EVENLY. NO SOB. PT STATED FEELING BETTER BUT STILL FEELS TIRED. ON ONGOING IVF HYDRATION GARRY WELL. NEEDS ATTENDED. CALL LIGHT WITHIN REACH. WILL CONT TO MONITOR AND WILL ENDORSE TO AM SHIFT FOR SARITHA.
[2017-01-26 07:38] LABS: BASOPHILS # (AUTO) 0.1 /CMM (0.0-0.2); BASOPHILS % (AUTO) 0.6 % (0.0-2.0); EOSINOPHILS # (AUTO) 0.3 /CMM (0.0-0.7); EOSINOPHILS % (AUTO) 2.9 % (0.0-6.0); HEMATOCRIT 31 % (33-45); LYMPHOCYTES # (AUTO) 1.5 /CMM (0.8-4.8); LYMPHOCYTES % (AUTO) 16.6 % (20.0-44.0); MEAN CORPUSCULAR HEMOGLOBIN 31 PG (26.0-33.0); MEAN CORPUSCULAR HGB CONC 33 g/dl (31.0-36.0); MEAN CORPUSCULAR VOLUME 94 fL (82-100); MONOCYTES # (AUTO) 0.8 /CMM (0.1-1.30); MONOCYTES % (AUTO) 8.9 % (2.0-12.0); NEUTROPHILS # (AUTO) 6.3 /CMM (1.8-8.9); PLATELET COUNT (AUTO) 236 /CMM (150-450); RDW COEFFICIENT OF VARIATION 15.5 (11.5-15.0); RED BLOOD CELL COUNT(AUTO) 3.28 MIL/uL (4.0-5.2); WHITE BLOOD COUNT (AUTO) 8.8 K/uL (4.3-11.0)
--- NOTE | 2017-01-26 07:55 | NUR ---
RN OPENING NOTES RECEIVED PT. PT IS STABLE AND SLEEPING IN BED. A/OX3. NO S/S OF DISTRESS OR SOB. NO C/O PAIN AT THIS TIME. IV ACCESS LOCATED ON RIGHT AC 20G, TO RUN NS AT 75 ML/HR. NS SUPPLY IS OUT, CENTRAL SUPPLY NOTIFIED. SAFETY MEASURES IN PLACE, CALL LIGHT WITHIN REACH. WILL CONTINUE TO MONITOR.
[2017-01-26 07:57] LABS: CALCIUM, SERUM 7.9 mg/dL (8.5-10.1); CREATININE 0.8 mg/dL (0.6-1.3); PHOSPHORUS 2.7 mg/dL (2.5-4.9)
[2017-01-26 08:00] VITALS: BP 131/71
[2017-01-26 08:13] VITALS: BP 131/71
[2017-01-26] MEDS: APIXABAN 2.5 MG TABLET PO SCH ×2 (08:43→16:11)
[2017-01-26] MEDS: LEVOTHYROXINE SODIUM 112 MCG TABLET PO SCH (08:43)
[2017-01-26] MEDS: FLUDROCORTISONE 0.1 MG TABLET PO SCH (08:43)
[2017-01-26] MEDS: AMLODIPINE BESYLATE 5 MG TABLET PO SCH ×2 (08:43→17:00)
[2017-01-26] MEDS: ASPIRIN 81 MG TAB.CHEW PO SCH (08:44)
[2017-01-26] MEDS: HYDROXYCHLOROQUINE 200 MG TABLET PO SCH (08:44)
[2017-01-26] MEDS: PANTOPRAZOLE 40 MG TABLET.DR PO SCH (08:44)
[2017-01-26] MEDS: CARVEDILOL 3.125 MG TABLET PO SCH ×2 (08:44→17:00)
[2017-01-26] MEDS ORDERED: predniSONE 10 MG TABLET PO SCH (09:00)
[2017-01-26] MEDS: POTASSIUM CHLORIDE 20 MEQ TAB.PRT.SR PO SCH ×3 (12:29→16:11)
[2017-01-26 16:00] VITALS: BP 103/54
[2017-01-26] MEDS: IV NS 0.9% 1,000 ML IV PRN (16:11)
[2017-01-26 17:11] VITALS: BP 137/87
--- NOTE | 2017-01-26 17:13 | NUR ---
RN NOTES AFTERNOON AMLODIPINE AND NORVASC HELD DUE TO LOW BP OF 103/54 AND PULSE OF 56.
--- NOTE | 2017-01-26 18:37 | NUR ---
RN CLOSING NOTES PT IS IN ROOM RESTING IN BED. A/OX3. NO S/S OF SOB OR RESPIRATORY DISTRESS. GENERAL WEAKNESS PERSISTS. REQUEST FROM PTS PRIMARY CARE PROVIDER MADE: TO ASK DR. HASTINGS ABOUT PTS PERSISTENT DROP IN K+. PT WAS HOSPITALIZED AT [facility] 2 WEEKS PRIOR TO ADMISSION AT [facility], WITH K+ AT 2.8. K+ WAS REPLACED AT [facility] HOWEVER IT HAS ALREADY DROPPED TO 3.0 CURRENTLY. PCP ANITA REQUESTS A CALL FROM DR. HASTINGS ). ALL PT NEEDS ANTICIPATED AND MET. SAFETY MEASURES IN PLACE, CALL LIGHT WITHIN REACH. WILL ENDORSE TO MEDIUM CYCLE SALESPERSON FOR SARITHA.
[2017-01-26] MEDS: ACETAMINOPHEN 325 MG TABLET PO PRN (19:50)
--- NOTE | 2017-01-27 06:32 | NUR ---
MS RN NOTES AWAKE & RESPONSIVE. NOT IN ANY DISTRESS. NO SOB NOTED. DENIES ANY PAIN OR DISCOMFORT AT THIS TIME. AM CARE DONE. MONITORED ACCORDINGLY. CALL LIGHT WITHIN REACH. BED IN LOWEST POSITION. SR UP X 2 FOR SAFETY WITH BED ALARM ON. WILL ENDORSE TO NEXT SHIFT.
[2017-01-27] MEDS: LEVOTHYROXINE SODIUM 112 MCG TABLET PO SCH (07:48)
[2017-01-27] MEDS: PANTOPRAZOLE 40 MG TABLET.DR PO SCH (07:48)
[2017-01-27 08:00] VITALS: BP 137/75
[2017-01-27] MEDS: HYDROXYCHLOROQUINE 200 MG TABLET PO SCH (08:09)
[2017-01-27] MEDS: ASPIRIN 81 MG TAB.CHEW PO SCH (08:09)
[2017-01-27] MEDS: APIXABAN 2.5 MG TABLET PO SCH ×2 (08:10→16:20)
[2017-01-27] MEDS: AMLODIPINE BESYLATE 5 MG TABLET PO SCH ×2 (08:10→16:21)
[2017-01-27] MEDS: FLUDROCORTISONE 0.1 MG TABLET PO SCH (08:10)
[2017-01-27] MEDS: CARVEDILOL 3.125 MG TABLET PO SCH ×2 (08:11→16:20)
[2017-01-27] MEDS: IV NS 0.9% 1,000 ML IV PRN (13:28)
--- NOTE | 2017-01-27 17:15 | NUR ---
M/S RN - Notes No new events seen, A/O x 3, denies pain, no apparent distress, tolerating room air, remain afebrile. Patient currently on IVF NS @ 75 ml/hr infusing well on the LFA with no signs of infiltration. Safety precautions maintained. All needs attended and met. Anticipate discharge back to [facility] if lab results tomorrow WNL and condition remain stable. Will continue with current medical management.
[2017-01-27] MEDS: ACETAMINOPHEN 325 MG TABLET PO PRN (19:40)
[2017-01-27 20:00] VITALS: BP 141/80
[2017-01-28] MEDS: IV NS 0.9% 1,000 ML IV PRN (06:11)
--- NOTE | 2017-01-28 07:27 | NUR ---
MS/RN Patient received Patient received from dispensing audiologist. Calm and cooperative, denies any pain .Bed in low setting, brakes locked, side rails X3 in upright position. Call light within reach, will continue to monitor and ensure safety.
[2017-01-28 07:32] LABS: BASOPHILS % (AUTO) 0.3 % (0.0-2.0); EOSINOPHILS # (AUTO) 0.3 /CMM (0.0-0.7); EOSINOPHILS % (AUTO) 2.1 % (0.0-6.0); HEMATOCRIT 33 % (33-45); HEMOGLOBIN 11.2 g/dL (11.5-14.8); LYMPHOCYTES # (AUTO) 1.7 /CMM (0.8-4.8); LYMPHOCYTES % (AUTO) 11.7 % (20.0-44.0); MEAN CORPUSCULAR HEMOGLOBIN 31 PG (26.0-33.0); MEAN CORPUSCULAR HGB CONC 34 g/dl (31.0-36.0); MEAN CORPUSCULAR VOLUME 93 fL (82-100); MONOCYTES # (AUTO) 0.9 /CMM (0.1-1.30); MONOCYTES % (AUTO) 6.3 % (2.0-12.0); NEUTROPHILS # (AUTO) 11.4 /CMM (1.8-8.9); NEUTROPHILS % (AUTO) 79.6 % (43.0-81.0); PLATELET COUNT (AUTO) 322 /CMM (150-450); RDW COEFFICIENT OF VARIATION 16.3 (11.5-15.0); WHITE BLOOD COUNT (AUTO) 14.3 K/uL (4.3-11.0)
[2017-01-28 07:41] LABS: CALCIUM, SERUM 8.3 mg/dL (8.5-10.1); CREATININE 0.7 mg/dL (0.6-1.3); MAGNESIUM 1.8 mg/dL (1.8-2.4); POTASSIUM 3.1 mmol/L (3.5-5.1)
[2017-01-28] MEDS: APIXABAN 2.5 MG TABLET PO SCH (08:35)
[2017-01-28] MEDS: FLUDROCORTISONE 0.1 MG TABLET PO SCH (08:36)
[2017-01-28] MEDS: LEVOTHYROXINE SODIUM 112 MCG TABLET PO SCH (08:36)
[2017-01-28] MEDS: PANTOPRAZOLE 40 MG TABLET.DR PO SCH (08:36)
[2017-01-28] MEDS: ASPIRIN 81 MG TAB.CHEW PO SCH (08:36)
[2017-01-28] MEDS: HYDROXYCHLOROQUINE 200 MG TABLET PO SCH (08:36)
[2017-01-28] MEDS: AMLODIPINE BESYLATE 5 MG TABLET PO SCH (08:37)
[2017-01-28] MEDS: CARVEDILOL 3.125 MG TABLET PO SCH (08:37)
--- NOTE | 2017-01-28 09:10 | NUR ---
MS/RN S/B Dr Brice Seen by Dr Brice - chest x-ray reviewed and shows some cloudy patches, two dosages of IVAB ordered. Maybe discharged to home later today after seen by PT.
--- NOTE | 2017-01-28 09:19 | NUR ---
WOUND CARE CONSULT: PT PRESENTS WITH BLANCHABLE REDNESS TO SACRAL AREA WHICH IS VERY BONY. PT IS INCONTINENT. RECOMMENDATIONS MADE FOR SKIN PROTECTION. DISCUSSED WITH NURSING STAFF. WILL SEE PRN. CURRENT BETTY SCORE IS 18. IN AGREEMENT WITH PLAN OF CARE. Addendum: 01/28/17 at 0920 by KAYLA DANIEL WNDNU Amended: Links added.
--- NOTE | 2017-01-28 09:26 | NUR ---
MS/RN Facility update Spoke with Magalys at patient's board and care. Made aware that patient will be discharged back to facility later today with prescription for oral antibiotics.
[2017-01-28] MEDS ORDERED: Z GUARD REMEDY 2 OZ OINT TP PRN (09:30)
[2017-01-28] MEDS ORDERED: AZITHROMYCIN 250 MG TABLET PO ONE (09:30)
[2017-01-28] MEDS ORDERED: Z GUARD REMEDY 2 OZ OINT TP SCH (09:30)
[2017-01-28] MEDS ORDERED: CEFTRIAXONE 1 G VIAL IM SCH (09:30)
[2017-01-28] MEDS ORDERED: CEFTRIAXONE 1 G in IV D5W 50 ML IV ONE (10:00)
[2017-01-28 10:33] VITALS: BP 141/82
[2017-01-28] MEDS: POTASSIUM CHLORIDE 20 MEQ TAB.PRT.SR PO SCH ×2 (12:08→12:16)
--- NOTE | 2017-01-28 14:04 | NUR ---
MS/RN Exit care Exit care prepared, copy of chart made. Prescription called through to pharmacy
--- NOTE | 2017-01-28 14:49 | NUR ---
MS/mohs surgeon/general dermatologist Patient discharged back to board and care in stable condition. Hepolck and name bands removed, no personal belongings. Report given to [place] (transport)
== END 2017-01-28 14:52 | disposition home or self-care (01) | DRG 74 ==
LOC: ER 13:15 → TELE2 16:11 → MEDSG2 16:54
PROVIDERS: ADMIT Legal Medicine; ATTEND Legal Medicine
DX: G90.8 Other disorders of autonomic nervous system (principal); E11.22 Type 2 diabetes mellitus with diabetic chronic kidney disease; M32.9 Systemic lupus erythematosus, unspecified; R53.1 Weakness; E03.9 Hypothyroidism, unspecified; E78.5 Hyperlipidemia, unspecified; E87.6 Hypokalemia; F31.9 Bipolar disorder, unspecified; H40.9 Unspecified glaucoma; I12.9 Hypertensive chronic kidney disease with stage 1 through stage 4 chronic kidney disease, or unspecified chronic kidney disease; K21.9 Gastro-esophageal reflux disease without esophagitis; N18.9 Chronic kidney disease, unspecified; E66.9 Obesity, unspecified; Z86.73 Personal history of transient ischemic attack (TIA), and cerebral infarction without residual deficits; Z68.29 Body mass index [BMI] 29.0-29.9, adult; D64.9 Anemia, unspecified; Z98.49 Cataract extraction status, unspecified eye
CPT/HCPCS: 36415; 70450-TC; 71010-TC; 80048-TC; 80076-TC; 81000-TC; 83735-TC; 84100-TC; 84484-TC; 85025-TC; 85730-TC; A4606; J0696; J7030; J7060; Z7610

== ENCOUNTER 2018-12-23 10:52 | Emergency (ER) | payer MEDICARE, BC ==
[~2018-12-23] VITALS: Ht 157.5 cm; Wt 79.8 kg
[~2018-12-23 10:52] MED LIST changes: -AMLO5TAB2 PO; +AMLO5TAB9 PO; +BISA10SU11 RC; -BISA10SU8 RC
--- NOTE | 2018-12-23 10:58 | NUR ---
[id number], C/O BACK PAIN S/P GLF TRIP AND FELL -HI, -KO, GENERALIZED BRUISING, TO ER BED 1, HOOKED TO MONITOR, CHANGED TO HOSPITAL GOWN, AWAITING MD DA SILVA.
[2018-12-23] MEDS ORDERED: CYAN-51 PO (11:43)
[2018-12-23] MEDS ORDERED: CHOL100044 PO (11:43)
[2018-12-23] MEDS ORDERED: NITR100C PO (11:43)
[2018-12-23] MEDS ORDERED: LEVO125T8 PO (11:43)
[2018-12-23] MEDS ORDERED: ESCI10TA PO (11:43)
[2018-12-23] MEDS ORDERED: MULT-24 PO (11:43)
[2018-12-23] MEDS ORDERED: OMEP20TA20 PO (11:43)
--- NOTE | 2018-12-23 11:48 | NUR ---
DR DEVRIES AT BEDSIDE
[2018-12-23 12:44] LABS: BASOPHILS # (AUTO) 0.1 /CMM (0.0-0.2); EOSINOPHILS % (AUTO) 1.8 % (0.0-6.0); HEMATOCRIT 33 % (33-45); HEMOGLOBIN 10.7 g/dL (11.5-14.8); LYMPHOCYTES # (AUTO) 1.5 /CMM (0.8-4.8); LYMPHOCYTES % (AUTO) 15.9 % (20.0-44.0); MEAN CORPUSCULAR HGB CONC 33 g/dl (31.0-36.0); MEAN CORPUSCULAR VOLUME 96 fL (82-100); MONOCYTES % (AUTO) 10.9 % (2.0-12.0); NEUTROPHILS # (AUTO) 6.6 /CMM (1.8-8.9); NEUTROPHILS % (AUTO) 70.4 % (43.0-81.0); PLATELET COUNT (AUTO) 308 /CMM (150-450); RED BLOOD CELL COUNT(AUTO) 3.41 MIL/uL (4.0-5.2); WHITE BLOOD COUNT (AUTO) 9.4 K/uL (4.3-11.0)
--- NOTE | 2018-12-23 12:48 | NUR ---
URINE SAMPLE COLLECTED VIA STRAIGHT CATHETER. SENT SAMPLE TO LAB
[2018-12-23 12:52] LABS: APPEARANCE,URINE Cloudy (CLEAR); BILIRUBIN,URINE SMALL (NEGATIVE); BLOOD, URINE Negative Ery/uL (NEGATIVE); KETONES,URINE 15 (NEGATIVE); LEUKOCYTE ESTERASE ,URINE Negative (NEGATIVE); NITRITE, URINE Negative (NEGATIVE); PH,URINE 6.5 (5.0-8.0); PROTEIN,URINE 30 mg/dl (NEGATIVE); UGLUCOSE Negative (NEGATIVE); UROBILINOGEN,URINE 0.2 EU/dL (0.2)
[2018-12-23 12:52] LABS: CALCIUM, SERUM 8.6 mg/dL (8.5-10.1); POTASSIUM 3.2 mmol/L (3.5-5.1)
[2018-12-23 12:54] LABS: COLOR,URINE Dark Yellow (YELLOW)
[2018-12-23 12:55] LABS: BACTERIA,URINE Few /HPF (None Seen); MUCUS,URINE Many /LPF (None Seen); RBC,URINE 0-2 /HPF (0-2); SQUAMOUS EPITHELIAL CELL,UR Few /HPF (None Seen); URINE AMORPHOUS URATE Moderate /HPF (None Seen)
[2018-12-23] MEDS ORDERED: HYDROCODONE/APAP 5/325MG 1 EACH TABLET PO ONE (13:30)
[2018-12-23] MEDS ORDERED: HYDROCODONE/APAP 5/325MG 1 EACH TABLET ONE (13:51)
--- NOTE | 2018-12-23 14:29 | NUR ---
ETA [id number] TRIP #[id number]
--- NOTE | 2018-12-23 15:17 | NUR ---
Patient picked up by [facility] [address] in stable condition, will be brought to [facility]. Written and verbal after care instructions given. Patient verbalizes understanding of instruction.
[2018-12-23 15:19] VITALS: BP 127/75
== END 2018-12-23 15:20 | disposition home or self-care (01) ==
LOC: ER 10:52
DX: M54.9 Dorsalgia, unspecified (principal); G89.29 Other chronic pain; E11.9 Type 2 diabetes mellitus without complications; I10 Essential (primary) hypertension; F31.9 Bipolar disorder, unspecified; Z86.73 Personal history of transient ischemic attack (TIA), and cerebral infarction without residual deficits; Z88.2 Allergy status to sulfonamides; Z79.899 Other long term (current) drug therapy; Z79.82 Long term (current) use of aspirin; W01.0XXA Fall on same level from slipping, tripping and stumbling without subsequent striking against object, initial encounter; Y93.89 Activity, other specified; Y92.091 Bathroom in other non-institutional residence as the place of occurrence of the external cause; Y99.8 Other external cause status
CPT/HCPCS: 36415; 72128-TC; 72131-TC; 72190-TC; 80048-TC; 81000-TC; 85025-TC; 85730-TC